=== PATIENT | male | born 1930 | race Caucasian/White ===

== ENCOUNTER 2019-06-04 17:47 | Inpatient (IN) | payer OTHER ==
[~2019-06-04] VITALS: Ht 182.9 cm; Wt 90.7 kg
[~2019-06-04 17:47] MED LIST: ACET325 PO; ASPI325 PO; ATEN25 PO; CITA20 PO; DONE10 PO; HYDCHL12.5 PO; MIRALAX17 GM PO; MIRT15 PO; Zithromax250 MG PO
[2019-06-04 19:16] LABS: Source, Urine Catheter
[2019-06-04 19:21] LABS: Bilirubin, Urine Neg (Neg); Blood, Urine Neg (Neg); Glucose Qualitative, Urine Neg (Neg); Ketones, Urine Neg (Neg); Leukocyte Esterase, Urine Neg (Neg); Nitrite, Urine Neg (Neg); Protein, Urine 1+ (Neg); Urobilinogen, Urine NORM (Normal)
[2019-06-04 19:30] LABS: Appearance, Urine Clear (Clear); Color, Urine Yellow (P-Yellow)
[2019-06-04 19:39] LABS: BASOPHILS ABSOLUTE AUTO 0.01 K/mm3 (0.00-0.23); BASOPHILS PERCENT AUTO 0 % (0-2); EOSINOPHILS ABSOLUTE AUTO 0.08 K/mm3 (0.00-0.68); EOSINOPHILS PERCENT AUTO 1 % (0-6); Hematocrit 40.8 % (37.0-53.0); Hemoglobin 13.1 g/dL (13.5-17.5); IMMATURE GRAN ABSOLUTE AUTO 0.01 K/mm3 (0.00-0.10); IMMATURE GRAN PERCENT AUTO 0 % (0-1); LYMPHOCYTES ABSOLUTE AUTO 2.56 K/mm3 (0.84-5.20); LYMPHOCYTES PERCENT AUTO 41 % (21-46); MONOCYTES ABSOLUTE AUTO 0.66 K/mm3 (0.16-1.47); MONOCYTES PERCENT AUTO 11 % (4-13); Mean Corpuscular HGB 32.3 pg (26.0-34.0); Mean Corpuscular HGB Conc 32.1 g/dL (31.5-36.5); Mean Corpuscular Volume 101 fL (80-100); NEUTROPHILS ABSOLUTE AUTO 2.95 K/mm3 (1.96-9.15); NEUTROPHILS PERCENT AUTO 47 % (41-73); Platelet Count 137 K/mm3 (150-400); RDW Coefficient Variation 13.2 % (11.7-14.2); RDW Standard Deviation 49.9 fL (35.1-46.3); Red Blood Cell Count 4.06 M/mm3 (4.30-5.90); White Blood Cell Count 6.27 K/mm3 (4.00-11.30)
[2019-06-04] MEDS ORDERED: LEVO750 PO (19:49)
[2019-06-04 19:57] LABS: Albumin, Blood 3.2 g/dL (3.4-5.0); Bilirubin, Total 0.7 mg/dL (0.1-1.0); Bun/Creatinine Ratio 20.4 (12.0-20.0); Calcium, Blood 8.8 mg/dL (8.5-10.1); Creatinine, Blood 1.81 mg/dL (0.60-1.20); Globulin, Blood 3.3 g/dL (2.2-4.0); Total Protein, Blood 6.5 g/dL (6.4-8.2)
[2019-06-04 21:42] LABS: PO2 Arterial 80.3 mmHg (80-100); pH Blood Arterial 7.34 (7.35-7.45)
[2019-06-05] MEDS ORDERED: FISH OIL 1,001000 MG PO (00:58)
[2019-06-05] MEDS ORDERED: LACT PO (00:59)
[2019-06-05] MEDS ORDERED: VITAMIN D31000 UNI2 PO (01:00)
[2019-06-05] MEDS ORDERED: ACET325 PO (01:01)
[2019-06-05 03:46] LABS: Hematocrit 41.5 % (37.0-53.0); Hemoglobin 13.1 g/dL (13.5-17.5); Mean Corpuscular HGB 31.4 pg (26.0-34.0); Mean Corpuscular HGB Conc 31.6 g/dL (31.5-36.5); Mean Corpuscular Volume 100 fL (80-100); RDW Coefficient Variation 13.3 % (11.7-14.2); RDW Standard Deviation 48.8 fL (35.1-46.3); Red Blood Cell Count 4.17 M/mm3 (4.30-5.90); White Blood Cell Count 4.43 K/mm3 (4.00-11.30)
[2019-06-05 03:49] LABS: BASOPHILS ABSOLUTE AUTO 0.01 K/mm3 (0.00-0.23); BASOPHILS PERCENT AUTO 0 % (0-2); EOSINOPHILS ABSOLUTE AUTO 0.21 K/mm3 (0.00-0.68); EOSINOPHILS PERCENT AUTO 5 % (0-6); IMMATURE GRAN ABSOLUTE AUTO 0.01 K/mm3 (0.00-0.10); IMMATURE GRAN PERCENT AUTO 0 % (0-1); LYMPHOCYTES ABSOLUTE AUTO 2.06 K/mm3 (0.84-5.20); LYMPHOCYTES PERCENT AUTO 47 % (21-46); MONOCYTES ABSOLUTE AUTO 0.41 K/mm3 (0.16-1.47); MONOCYTES PERCENT AUTO 9 % (4-13); NEUTROPHILS ABSOLUTE AUTO 1.68 K/mm3 (1.96-9.15); NEUTROPHILS PERCENT AUTO 38 % (41-73)
[2019-06-05 03:56] LABS: Mean Platelet Volume 9.9 fL (9.1-12.4); Platelet Count 120 K/mm3 (150-400)
[2019-06-05 04:03] LABS: Bun/Creatinine Ratio 22.3 (12.0-20.0); Calcium, Blood 8.4 mg/dL (8.5-10.1); Creatinine, Blood 1.57 mg/dL (0.60-1.20); Potassium, Blood 3.9 mmol/L (3.5-5.5)
--- NOTE | 2019-06-05 06:26 | NUR ---
SHIFT SUMMARY PT WAS A NEW ADMIT DURING THE NIGHT. HE WAS ADMITTED FOR PNA. PT HAS A HX OF DEMENTIA, AND HAS BEEN NONVERBAL FOR YEARS PER REPORT FROM ER. PT CAME FROM [place]. HE WILL PULL OFF "ANYTHING THAT ANNOYS HIM", AND HAS BEEN UNABLE TO KEEP HIS TELE, BIOX MONITOR, OR OXYGEN NASAL CANNULA OR BIPAP MASK IN PLACE THIS AM. PT'S SATS HAVE BEEN 93-94% ON RA. VITALS STABLE. NO ACUTE CHANGES IN PT CONDITION NOTED SINCE ADMISSION. WILL CONTINUE TO MONITOR AND TREAT PER EMAR UNTIL HAND OFF TO DAY SHIFT RN.
--- NOTE | 2019-06-05 07:32 | NUR ---
pt laying in bed on his side with blankets pulled up tight, he answers yes to everything, that is as verbal as he is, lungs are clear dim in bases, resp even and unlabored, no cough noted, pulls off o2 and monitor when it bothers him, no cough noted, v.s. stable, afebrile, iv site is clear and patent, btx4, abd flat soft nontender, incont of urine and stool, attends in place, skin c/w/d, azeb, catherine, call light in reach, warm blanket given.
--- NOTE | 2019-06-05 08:40 | NUR ---
PT HAS BEEN TRANSFERED TO MEDICAL FLOOR, CHARGE NURSE GAVE REPORT, LEFT VIA BED WITH ALL BELONGINGS.
--- NOTE | 2019-06-05 19:08 | NUR ---
SHIFT SUMMARY NO ACUTE CHANGES. PATIENT DENIES PAIN AND NAUSEA. REPORTED SHORTNESS OF BREATH OCCASSIONALLY. REPOSITIONED AND RESPIRATORY THERAPY CALLED FOR BREATHING TREATMENTS. SWALLOW EVAL TODAY, PATIENT ON PUREE WITH ASPIRATION PRECAUTIONS. PATIENT REQUIRES FEEDING ASSISTANCE. PATIENT REPOSITIONED Q2. PALLIATIVE CONSULTED. PATIENT'S BROTHER VISITED TODAY. CALL LIGHT IN REACH.
--- NOTE | 2019-06-06 05:50 | NUR ---
SHIFT SUMMARY: A/O TO SELF. SPEAKS VERY LITTLE. IS NOT ABLE TO COMMUNICATE NEEDS. PT PULLED OUT IV X 2 TONIGHT AND ATTEMPTED TO PULL OUT 3RD. REMOVED TELE LEADS OFTEN HE COULD REACH THEM. RECIEVED PHYSICIAN APPROVAL FOR SOFT WRIST RESTRAINTS. PT IS BRIDGETT THEM OK. RESTING CALMLY IN BED WITHOUT MUCH PULLING. BECOMES AGITATED WITH INVASIVE PROCEDURES SUCH IV PLACEMENT, NASAL SWAB, AND SIVA CARE. IMMEDIATELY BECOMES PLEASANT AFTER STAFF REMOVE THEMSELVES FROM HIS PERSONAL SPACE. FEELS HOT/DIAPHORETIC, BUT HAS REMAINED AFEBRILE TONIGHT. LOWERED ROOM TEMPS AND REMOVED BLANKETS. AUDIBLE LUNG CONGESTION AND WHEEZE WITH RESPIRATIONS. LATE EXPIRATORY RHONCHI/WHEEZE AUSCULTATED THROUGHOUT LOBES. VSS. SLEPT MINIMALLY TONIGHT. BED LOW, CALL BUTTON IN REACH, BED ALARM ON.
[2019-06-06 06:10] LABS: Influenza A Negative (NEGATIVE); Influenza B Negative (NEGATIVE)
[2019-06-06 06:31] LABS: Calcium, Blood 8.2 mg/dL (8.5-10.1); Creatinine, Blood 1.43 mg/dL (0.60-1.20); Potassium, Blood 3.7 mmol/L (3.5-5.5)
--- NOTE | 2019-06-06 12:34 | NUR ---
RECEIVED AT 10:15. SETTLED TO BED. SOFT WRIST RESTRAINTS. CALL LITE IN REACH, BED ALARM ON FOR SAFETY
--- NOTE | 2019-06-06 18:26 | NUR ---
PT PLEASANT TODAY SINCE TRANSFER. CHANGING NEARLY EVERY TIME REPOSITION AND CHECK RESTRAINTS. CONTINUES TO HAVE AUDIBLE WHEEZE. DID GIVE STEROIDS PER EMAR. XRAY TAKEN OF LUNGS TODAY. NO OTHER CONCERNS AT THIS TIME. BED IN LOW POSITION, CALL LITE IN REACH. BED ALARM ON FOR SAFETY. PT CONTINUES TO PULL AT LINES. ALSO THROWS LEGS OFF BED. I POSITIONED MYSELF TO BE ABLE TO SEE HIM EASIER TO MONITOR FOR HIS SAFETY. PT ALSO IS ON OUTSIDE MONITORING.
--- NOTE | 2019-06-07 06:35 | NUR ---
SHIFT SUMMARY: PATIENT IS ALERT AND ORIENTED TO SELF. NO COMPLAINTS OR S/S OF PAIN. PATIENT CONTINUES TO BE RESTLESS AND PULL ON IV LINE AND ATTEMPT TO PULL OUT IV SITE. PATIENT GETS AGGITATED IF HE HAS BEEN INCONTINENT WRIST RESTRAINTS ARE IN PLACE DO TO PULLING LINES. PATIENT TOLERATES NECTAR THICK JUICE WELL BUT DOES NOT LIKE THE THICKENED WATER.
--- NOTE | 2019-06-07 17:36 | NUR ---
SHIFT SUMMARY: NO ACUTE CHANGES TO REPORT THIS SHIFT. PT HX DEMENTIA. CVA; ORIENTED TO SELF. PT REMAINS IN BILATERAL SOFT WRIST RESTRAINTS R/T PULLING AT LINES. ASPIRATION PRECAUTIONS. PT INCONTINENT OF BOWEL & BLADDER; ATTENDS IN PLACE; SKIN C/D/I. IV ABX COTINUING. WCTM.
--- NOTE | 2019-06-07 19:29 | NUR ---
Call placed to school lunch monitor, school lunch monitor voiced able to see pt on camera. Restraints checked - circ of bilat wrists good. Denies discomfort.
--- NOTE | 2019-06-08 02:57 | NUR ---
ANGER AND AGGRESSIVE BEHAVIOR CONTINUES AT INTERVALS THIS SHIFT. CONTINUES TO ATTEMPT TO REMOVE HIS IV, BILATERAL SOFT WRIST RESTRAINTS CONTINUE TO PREVENT REMOVAL OF LINES. CALL LIGHT IN REACH. IV ANTIBIOTICS GIVEN PER SEP. TOLERATED NECTAR THICK JUICE. SEE DOC FLOW SHEETS FOR DETAILS.
--- NOTE | 2019-06-08 05:52 | NUR ---
LEFT WRIST RESTRAINT CONTINUES, BUT RIGHT WRIST OUT, LEFT HAND CONTINUES TO ATTEMPT TO PULL AT ABHIJEET, AND SUCH. NOTE SOME IMPROVEMENT WITH EHAVIOR
--- NOTE | 2019-06-08 06:35 | NUR ---
NOTE DECREASED URINE OUTPUT, BLADDER SCAN 195. TOLERATED 2 CUPS OF NECTAR THICK JUICE. BM X 2 THIS SHIFT.
--- NOTE | 2019-06-08 17:47 | NUR ---
SHIFT SUMMARY: NO ACUTE CHANGES TO REPORT THIS SHIFT. PT HX DEMENTIA, CVA; ORIENTED TO SELF. NO C/O PAIN/ PT IN NO APPARENT DISTRESS. PT INCONTINENT OF BOWEL AND BLADDER; BMs HOURLY; PASTY, SMALL SIZE. ASPIRATION PRECAUTIONS; NECTAR THICK LIQUIDS/ 0 STRAWS; PO MEDS IN APPLE SAUCE. IV ABX CONTINUING. WCTM.
--- NOTE | 2019-06-09 05:25 | NUR ---
SUPERVISOR TUBING SUMMARY NO ACUTE CHANGES THIS SHIFT. PT AAOX1, CAN SOMETIMES ANSWER YES/NO QUESTIONS. PT MOSTLY PLEASANT BUT DOES BECOME IRRITABLE AT TIMES FOR NO APPARENT REASON. PT IS GENERALLY EASY TO REDIRECT AND CALM DOWN. PT HAS HAD 2-3 VERY LARGE SOFT BOWEL MOVEMENTS TONIGHT, 1 REQUIRING A FULL BED CHANGE. PT REMAINS IN SOFT WRIST RESTRAINT. ONLY L WRIST IS IN RESTRAINT PT HAS MINIMAL USE OF R ARM. VSS, WILL CONTINUE TO MONITOR.
[2019-06-09 05:54] LABS: Bun/Creatinine Ratio 20.5 (12.0-20.0); Creatinine, Blood 1.22 mg/dL (0.60-1.20); Potassium, Blood 3.9 mmol/L (3.5-5.5)
--- NOTE | 2019-06-09 17:56 | NUR ---
PT PLEASANT TODAY. MOSTLY FIGITS AND BECOMES IRRITABLE AND TRIES TO GET OUT OF BED IF WET OR SOILED. CONTINUES TO NEED RESTRAINTS FOR HIS SAFETY. NEW IV PLACED TODAY. NO OTHER CONCERNS AT THIS TIME. BED IN LOW POSITION, CALL LITEIN REACH. BED ALARM ON FOR SAFETY
--- NOTE | 2019-06-10 04:06 | NUR ---
SHIFT SUMMARY AOX SELF ONLY. BED ALARM. SOFT WRIST RESTRAINTS AND LEIGH VEST. LS WHEEZY BUT PT DENIES SOB. DENIES NAUSEA AND PAIN. REDDENED BOTTOM AND SCROTUM. 3-4 SOFT INC STOOLS OVERNIGHT. BARRIER CREAM APPLIED. NEW IV IN L FA, PT REMOVED PREVIOUS IV. FEEDER. R ARM IMMOBILE FROM CVA. MEDS CRUSHED IN APPLESAUCE. UNSURE OF DC PLAN.
--- NOTE | 2019-06-10 13:42 | NUR ---
HIS WRIST RESTRAINTS CAME OFF AT 10 AM AND HIS VEST LEIGH CAME OFF AT 1200 NOON. HE IS MOSTLY SLEEPING TODAY BUT DID EAT SOME AT EACH MEAL SO FAR TODAY. NO SIGNIFICANT STOOLING TODAY. ATTENDS IN PLACE.
[2019-06-10] MEDS ORDERED: ALBU2.5V5 INH (14:40)
[2019-06-10] MEDS ORDERED: PRED20 PO (14:41)
[2019-06-10] MEDS ORDERED: DONE5 PO (14:41)
--- NOTE | 2019-06-10 15:24 | NUR ---
HE HAD 1 INCONTINENT STOOL THIS AFTERNOON. HE HAS VOIDED WELL. DC'D TO HOME WITH DC PACKET BY W/C [place] TO [facility]. FACILITATOR IN CONTACT WITH [employer] STEELE.
== END 2019-06-10 15:20 | disposition home health service (06) | DRG 193 ==
LOC: ER 17:47 → PCU 22:18 → MEDS 23:32 → ENPENDDIS 06-10 12:46 → MEDS 06-10 15:20
PROVIDERS: Emergency Medicine; Internal Medicine; Nurse Practitioner Acute Care; ADMIT Hospitalist
DX: J18.1 Lobar pneumonia, unspecified organism (principal); J96.02 Acute respiratory failure with hypercapnia; J96.01 Acute respiratory failure with hypoxia; G92 Toxic encephalopathy; J44.0 Chronic obstructive pulmonary disease with (acute) lower respiratory infection; J44.1 Chronic obstructive pulmonary disease with (acute) exacerbation; N17.9 Acute kidney failure, unspecified; R13.10 Dysphagia, unspecified; I69.991 Dysphagia following unspecified cerebrovascular disease; G30.9 Alzheimer's disease, unspecified; F02.80 Dementia in other diseases classified elsewhere, unspecified severity, without behavioral disturbance, psychotic disturbance, mood disturbance, and anxiety; I10 Essential (primary) hypertension; F32.9 Major depressive disorder, single episode, unspecified; K59.09 Other constipation; E78.5 Hyperlipidemia, unspecified; N40.0 Benign prostatic hyperplasia without lower urinary tract symptoms; E11.9 Type 2 diabetes mellitus without complications; Z79.4 Long term (current) use of insulin; G89.4 Chronic pain syndrome
CPT/HCPCS: 36415; 36600; 51701; 70450; 71045; 71046; 80048; 80053; 82803; 83605; 83880; 84145; 85025; 87040; 87804; 92526; 92610; 94640; 94660; 94760; 94762; 96365-59; 99285-25; J0456; J0696; J1650; J1956; J2920; J2930; J7030; J7050; J7512

== ENCOUNTER 2019-06-13 21:47 | Emergency (ER) | payer OTHER ==
[~2019-06-13] VITALS: Ht 177.8 cm; Wt 81.7 kg
[~2019-06-13 21:47] MED LIST changes: +ALBU2.5V5 INH; +DONE5 PO; +FISH OIL 1,001000 MG PO; +LACT PO; +LEVO750 PO; +PRED20 PO; +VITAMIN D31000 UNI2 PO
[2019-06-13 22:11] LABS: BASOPHILS ABSOLUTE AUTO 0.04 K/mm3 (0.00-0.23); BASOPHILS PERCENT AUTO 0 % (0-2); EOSINOPHILS ABSOLUTE AUTO 0.01 K/mm3 (0.00-0.68); EOSINOPHILS PERCENT AUTO 0 % (0-6); Hematocrit 50.8 % (37.0-53.0); IMMATURE GRAN ABSOLUTE AUTO 0.23 K/mm3 (0.00-0.10); IMMATURE GRAN PERCENT AUTO 1 % (0-1); LYMPHOCYTES ABSOLUTE AUTO 2.06 K/mm3 (0.84-5.20); LYMPHOCYTES PERCENT AUTO 11 % (21-46); MONOCYTES ABSOLUTE AUTO 0.88 K/mm3 (0.16-1.47); MONOCYTES PERCENT AUTO 5 % (4-13); Mean Corpuscular HGB 32.1 pg (26.0-34.0); Mean Corpuscular HGB Conc 33.5 g/dL (31.5-36.5); Mean Platelet Volume 10.2 fL (9.1-12.4); NEUTROPHILS ABSOLUTE AUTO 15.52 K/mm3 (1.96-9.15); NEUTROPHILS PERCENT AUTO 83 % (41-73); Platelet Count 234 K/mm3 (150-400); RDW Coefficient Variation 12.8 % (11.7-14.2); RDW Standard Deviation 45.3 fL (35.1-46.3); Red Blood Cell Count 5.29 M/mm3 (4.30-5.90); White Blood Cell Count 18.74 K/mm3 (4.00-11.30)
[2019-06-13 22:13] LABS: Mean Corpuscular Volume 96 fL (80-100)
[2019-06-13 22:29] LABS: Alanine Aminotransfer (ALT/SGP 24 U/L (12-78); Albumin, Blood 3.5 g/dL (3.4-5.0); Albumin/Globulin Ratio 0.9 (0.8-1.8); Alk Phos 52 U/L (50-136); Anion Gap 5 mmol/L (6-16); Aspartate Aminotrans (AST/SGOT 17 U/L (12-37); Bilirubin, Total 1.4 mg/dL (0.1-1.0); Blood Urea Nitrogen 33 mg/dL (8-24); Bun/Creatinine Ratio 27.5 (12.0-20.0); CO2, Blood 36 mmol/L (21-32); Calcium, Blood 10.7 mg/dL (8.5-10.1); Chloride, Blood 96 mmol/L (98-108); Globulin, Blood 3.8 g/dL (2.2-4.0); Glomerular Filtration Rate >60 (60-); Glucose, Blood 167 mg/dL (70-99); Potassium, Blood 4.7 mmol/L (3.5-5.5); Prothrombin Time Results 10.6 Sec (9.7-11.5); Sodium, Blood 137 mmol/L (136-145); Total Protein, Blood 7.3 g/dL (6.4-8.2)
[2019-06-14 00:10] LABS: Calcium, Ionized (POC) 1.22 mmol/L (1.10-1.46); Chloride (POC) 95 mmol/L (98-108); Creatinine (POC) 1.2 mg/dL (0.8-1.3); Glucose (ISTAT POC) 163 mg/dL (70-99); Hemoglobin (POC) 16.3 g/dL (13.5-17.5); Potassium (POC) 3.8 mmol/L (3.5-5.5); Sodium (POC) 136 mmol/L (135-148); Total CO2 (POC) 34 mmol/L (21-32)
[2019-06-14] MEDS ORDERED: ONDA4ODT MM (00:21)
== END 2019-06-14 02:13 | disposition home or self-care (01) ==
LOC: ER 21:47
PROVIDERS: Emergency Medicine
DX: R11.10 Vomiting, unspecified (principal); D72.829 Elevated white blood cell count, unspecified; F03.90 Unspecified dementia, unspecified severity, without behavioral disturbance, psychotic disturbance, mood disturbance, and anxiety; I10 Essential (primary) hypertension; F32.9 Major depressive disorder, single episode, unspecified; E11.9 Type 2 diabetes mellitus without complications; Z79.899 Other long term (current) drug therapy; Z79.82 Long term (current) use of aspirin; Z79.52 Long term (current) use of systemic steroids; Z86.73 Personal history of transient ischemic attack (TIA), and cerebral infarction without residual deficits
CPT/HCPCS: 36415; 71045; 80047; 80053; 82272; 85014; 85025; 85610; 85730; 86850; 86900; 86901; 93005; 93010; 99284-25